=== PATIENT | female | born 1945 | race Caucasian/White ===

== ENCOUNTER 2017-07-25 16:23 | Emergency (ER) | payer MEDICARE, OTHER ==
[~2017-07-25] VITALS: Ht 160 cm; Wt 60.6 kg
[~2017-07-25 16:23] MED LIST: BACT2OIN TOP; PRED20 PO; Z.0.NO CURRENT MEDS
[2017-07-25 16:28] VITALS: BP 154/72; PULSE 93; RESP 18; TEMP 99.5; O2SAT 99
[2017-07-25] MEDS ORDERED: KETOROLAC TROMETHAMINE 60 MG/2 ML (IM) VIAL IM ONE (17:15)
[2017-07-25] MEDS ORDERED: AMOX500T PO (17:20)
--- NOTE | 2017-07-25 17:21 | PD ---
HPI Chief Complaint: ENT Complaint Time Seen by Provider: 16:58 Travel History International Travel<30 days: No Contact w/Intl Traveler<30days: No Traveled to known affect area: No History of Present Illness HPI 71-year-old female here with ear pain, dental pain, headache intermittently for 10 days. She reports she had what sounds to be the flu approximately 10 days ago. Since then she's had persistent ear pain and swollen lymph nodes. she denies fever or chills. Headache is frontal, nonradiating, similar to previous migraines & relieved with motrin. symptom severity moderate. No Fever,chills, neck pain. PFSH Past Medical History Diminished Hearing: No Menopausal: Yes Past Surgical History Abdominal Surgery: Yes (EXPLORATORY SURGERY) Social History Alcohol Use: No Tobacco Use: No Substance Use: No Allergies-Medications (Allergen,Severity, Reaction): Coded Allergies: No Known Allergies (Verified , 12/24/11) Reported Meds & Prescriptions Reported Meds & Active Scripts Active Amoxicillin 500 Mg Tab 500 Mg PO TID 10 Days Physical Exam Narrative GENERAL: Alert, nontoxic-appearing 8-year-old female. SKIN: Warm and dry. HEAD: Normocephalic. EYES: No scleral icterus. No injection or drainage. EAR: Mild left TM erythema. TM is opaque. Loss of landmarks. No canal swelling or drainage. No mastoid tenderness. NECK: Supple, trachea midline.+ Mild anterior cervical lymphadenopathy. No meningismus. CARDIOVASCULAR: Regular rate and rhythm without murmurs, gallops, or rubs. RESPIRATORY: Breath sounds equal bilaterally. No accessory muscle use. GASTROINTESTINAL: Abdomen soft, non-tender, nondistended. MUSCULOSKELETAL: No cyanosis, or edema. BACK: Nontender without obvious deformity. No CVA tenderness. Data Data Last Documented VS Vital Signs Date Time Temp Pulse Resp B/P (MAP) Pulse Ox O2 Delivery O2 Flow Rate FiO2 07/25/17 17:32 146/81 (102) 07/25/17 16:28 99.5 93 18 99 Orders Orders Ketorolac Inj (Toradol Inj) (07/25/17 17:15) Ed Discharge Order (07/25/17 17:21) MDM Medical Decision Making Medical Screen Exam Complete: Yes Emergency Medical Condition: Yes Differential Diagnosis Viral illness, influenza, otitis media, dental infection Narrative Course 71-year-old female here with ear pain, dental pain, headache intermittently for 10 days. The patient is nontoxic-appearing. She reports she had what appears to be the flu approximately 10 days ago. Since then she's had persistent ear pain and swollen lymph nodes. She has mild right TM erythema, the TM is opaque , loss of landmarks. No mastoid tenderness. No meningismus. Patient will be put on amoxicillin and instructed to follow-up with her primary doctor. Diagnosis Primary Impression: URI (upper respiratory infection) Qualified Codes: J06.9 - Acute upper respiratory infection, unspecified Referrals: Primary Care Physician Additional Instructions: Continue [id number] Aleve as needed for headache. You may also take Tylenol. Follow-up the primary doctor Scripts Amoxicillin (Amoxicillin) 500 Mg Tab 500 MG PO TID for Infection for 10 Days, TAB 0 Refills Prov: Pascale Cruz 07/25/17 Disposition: 01 DISCHARGE HOME Condition: Stable Pascale Cruz Jul 25, 2017 17:21
[2017-07-25 17:32] VITALS: BP 146/81
== END 2017-07-25 17:36 | disposition home or self-care (01) ==
LOC: PHEFT 16:23
DX: J06.9 Acute upper respiratory infection, unspecified (principal); R51 Headache; K08.89 Other specified disorders of teeth and supporting structures
CPT/HCPCS: 96372; 99284; J1885